=== PATIENT | male | born 1960 | race Caucasian/White ===

== ENCOUNTER 2018-11-23 17:07 | Inpatient (IN) | payer BC ==
[~2018-11-23] VITALS: Ht 177.8 cm; Wt 90.8 kg
[~2018-11-23 17:07] MED LIST: AMIT25; ATORVASTATIN CA10 MG PO; DULOXETINE HCL30 MG PO; DULOXETINE HCL60 MG PO; ERGO50000; Hair, Skin & N1 EACH PO; LOVA40; LOVA40 PO; Multi-Day Vita1 EACH; OMEP20ER; OXYC5 PO
--- NOTE | 2018-11-27 06:40 | NUR ---
History, Chart, Medications and Allergies reviewed before start of procedure. Patient confirms NPO status and agrees with scheduled surgery. Lungs clear T/O to Auscultation. Patient reports completing Chlorhexadine shower X5 prior to admission to hospital IN ADDITION TO 5 DAYS MUPIROCIN OINTMENT TO BILATERAL NARES. NO JEWELRY PRESENT ON ADMIT [facility]. Pre-Op teaching done. Pt verbalizes understanding. PATIENT WILL GIVE HIS GLASSES TO HIS PRIOR TO SURGERY PER HIS REQUEST.
--- NOTE | 2018-11-27 07:18 | NUR ---
OR TRACKER CARD EXPLAINED TO , POLI. OPPORTUNITY FOR QUESTIONS PROVIDED.
--- NOTE | 2018-11-27 07:24 | NUR ---
CUSTOMER ENGAGEMENT ANALYST REPORT COMPLETED AT BEDSIDE WITH DOUG PALACIO RN.
--- NOTE | 2018-11-27 07:24 | NUR ---
PATIENT UP BR FOR UNMEASURED VOID.
--- NOTE | 2018-11-27 18:31 | NUR ---
SHIFT SUMMARY PT EATING AND DRINKING. PT VOIDING. PT BEEN ASSISTED WITH ADL'S PRN. PT BEEN MED FOR PAIN. PT BEEN EDUCATED ON I/S. PT USING CALL LIGHT APPR. PT HAD PROCEDURE TODAY. FAMILY IN/OUT OF ROOM.
--- NOTE | 2018-11-28 04:27 | NUR ---
SHIFT SUMMARY: PT POD #1 FOR R TOTAL HIP. VS WNL T/O SHIFT. AQUACEL DRESSING CDI WITH POLAR PACK IN PLACE. PAIN MANAGED WITH 10MG OXY, AND SCHEDULED TORADOL. PT 1 ASSIST TO BATHROOM W/FWW+GB. VOIDING WELL. FLUIDS TKO. PT EMILIANO PO AND DENIES N/V. ABX COMPLETE. USING HOME CPAP T/O NIGHT. NO CONCERNS AT THIS TIME.
[2018-11-28 04:55] LABS: BASOPHILS ABSOLUTE AUTO 0.02 K/mm3 (0.00-0.23); BASOPHILS PERCENT AUTO 0 % (0-2); EOSINOPHILS ABSOLUTE AUTO 0.03 K/mm3 (0.00-0.68); EOSINOPHILS PERCENT AUTO 0 % (0-6); Hematocrit 35.8 % (37.0-53.0); Hemoglobin 12.6 g/dL (13.5-17.5); IMMATURE GRAN ABSOLUTE AUTO 0.06 K/mm3 (0.00-0.10); IMMATURE GRAN PERCENT AUTO 1 % (0-1); LYMPHOCYTES ABSOLUTE AUTO 1.67 K/mm3 (0.84-5.20); LYMPHOCYTES PERCENT AUTO 13 % (21-46); MONOCYTES ABSOLUTE AUTO 1.18 K/mm3 (0.16-1.47); MONOCYTES PERCENT AUTO 9 % (4-13); Mean Corpuscular HGB Conc 35.2 g/dL (31.5-36.5); Mean Corpuscular Volume 102 fL (80-100); Mean Platelet Volume 10.1 fL (9.1-12.4); NEUTROPHILS PERCENT AUTO 77 % (41-73); Platelet Count 215 K/mm3 (150-400); RDW Coefficient Variation 12.1 % (11.7-14.2); RDW Standard Deviation 45.5 fL (35.1-46.3); White Blood Cell Count 12.76 K/mm3 (4.00-11.30)
[2018-11-28 05:12] LABS: Anion Gap 4 mmol/L (6-16); Blood Urea Nitrogen 12 mg/dL (8-24); Bun/Creatinine Ratio 13.3 (12.0-20.0); CO2, Blood 26 mmol/L (21-32); Calcium, Blood 8.2 mg/dL (8.5-10.1); Chloride, Blood 109 mmol/L (98-108); Glomerular Filtration Rate >60 (60-); Glucose, Blood 120 mg/dL (70-99); Potassium, Blood 3.7 mmol/L (3.5-5.5); Sodium, Blood 139 mmol/L (136-145)
[2018-11-28] MEDS ORDERED: ACET500 PO (09:07)
[2018-11-28] MEDS ORDERED: ASPI81CH PO (09:07)
--- NOTE | 2018-11-28 10:28 | NUR ---
DISCHARGE: PT EATING AND DRINKING WELL. PT VOIDING. PT REPORTS PAIN CONTROLLED ON PO PAIN MEDICATION. PT BEEN CLEARED BY THERAPY TO GO HOME. LYLE PHYSICIAN ASSIST BEEN TO SEE PT THIS AM. PT REPORTS HAVING APPR EQUIP AT HOME. REPORTS UNDERSTANDING OF D/C INSTRUCTIONS. FAMILY REPORTS HAVING PAIN MEDICATION. PT GIVEN ICE MACHINE.
--- NOTE | 2018-11-28 14:18 | NUR ---
11/28/18 1418 Gladis Mullen VERIFICATIONS: EDIT CHART.
== END 2018-11-28 10:30 | disposition home or self-care (01) | DRG 470 ==
LOC: SURS 11-27 05:44 → PRE IP 11-27 07:30 → SURS 11-27 12:06
PROVIDERS: ADMIT Orthopaedic Surgery
PROC: 0SR902A Replacement of Right Hip Joint with Metal on Polyethylene Synthetic Substitute, Uncemented, Open Approach (ICD-10-PCS; principal; 2018-11-27 07:30)
DX: M16.11 Unilateral primary osteoarthritis, right hip (principal); E78.00 Pure hypercholesterolemia, unspecified; Z88.2 Allergy status to sulfonamides; Z91.040 Latex allergy status
CPT/HCPCS: 36415; 72170; 80048; 83735; 85025; 88300; 97110; 97116; 97162; 97530; C1776; J0171; J0690; J0735; J1100; J1170; J1885; J2250; J2405; J2704; J2795; J3010; J7120

== ENCOUNTER 2018-11-29 09:27 | Emergency (ER) | payer BC ==
[~2018-11-29] VITALS: Ht 177.8 cm; Wt 90.7 kg
[~2018-11-29 09:27] MED LIST changes: +ACET500 PO; +ASPI81CH PO
[2018-11-29 10:14] LABS: BASOPHILS ABSOLUTE AUTO 0.05 K/mm3 (0.00-0.23); BASOPHILS PERCENT AUTO 1 % (0-2); EOSINOPHILS ABSOLUTE AUTO 0.12 K/mm3 (0.00-0.68); EOSINOPHILS PERCENT AUTO 1 % (0-6); Hematocrit 39.2 % (37.0-53.0); Hemoglobin 13.5 g/dL (13.5-17.5); IMMATURE GRAN ABSOLUTE AUTO 0.03 K/mm3 (0.00-0.10); IMMATURE GRAN PERCENT AUTO 0 % (0-1); LYMPHOCYTES ABSOLUTE AUTO 2.17 K/mm3 (0.84-5.20); LYMPHOCYTES PERCENT AUTO 22 % (21-46); MONOCYTES ABSOLUTE AUTO 0.93 K/mm3 (0.16-1.47); MONOCYTES PERCENT AUTO 9 % (4-13); Mean Corpuscular HGB 34.8 pg (26.0-34.0); Mean Corpuscular HGB Conc 34.4 g/dL (31.5-36.5); Mean Corpuscular Volume 101 fL (80-100); Mean Platelet Volume 10.8 fL (9.1-12.4); NEUTROPHILS ABSOLUTE AUTO 6.77 K/mm3 (1.96-9.15); NEUTROPHILS PERCENT AUTO 67 % (41-73); Platelet Count 228 K/mm3 (150-400); RDW Coefficient Variation 12.5 % (11.7-14.2); RDW Standard Deviation 46.5 fL (35.1-46.3); Red Blood Cell Count 3.88 M/mm3 (4.30-5.90); White Blood Cell Count 10.07 K/mm3 (4.00-11.30)
[2018-11-29 10:31] LABS: Alanine Aminotransfer (ALT/SGP 53 U/L (12-78); Albumin, Blood 3.3 g/dL (3.4-5.0); Alk Phos 82 U/L (50-136); Anion Gap 6 mmol/L (6-16); Aspartate Aminotrans (AST/SGOT 55 U/L (12-37); Bilirubin, Total 0.5 mg/dL (0.1-1.0); Blood Urea Nitrogen 10 mg/dL (8-24); Bun/Creatinine Ratio 10.9 (12.0-20.0); CO2, Blood 27 mmol/L (21-32); Calcium, Blood 8.5 mg/dL (8.5-10.1); Chloride, Blood 106 mmol/L (98-108); Creatinine, Blood 0.91 mg/dL (0.60-1.20); Globulin, Blood 3.4 g/dL (2.2-4.0); Glomerular Filtration Rate >60 (60-); Glucose, Blood 114 mg/dL (70-99); Potassium, Blood 3.5 mmol/L (3.5-5.5); Sodium, Blood 139 mmol/L (136-145); Total Protein, Blood 6.7 g/dL (6.4-8.2)
== END 2018-11-29 11:36 | disposition home or self-care (01) ==
LOC: ER 09:27
PROVIDERS: Emergency Medicine
DX: R55 Syncope and collapse (principal); Z96.641 Presence of right artificial hip joint; Z88.2 Allergy status to sulfonamides; Z91.040 Latex allergy status; Z88.8 Allergy status to other drugs, medicaments and biological substances; Z79.899 Other long term (current) drug therapy; Z79.82 Long term (current) use of aspirin
CPT/HCPCS: 71046; 80053; 84484; 85025; 93005; 93010; 99284-25

== ENCOUNTER 2020-01-21 11:53 | Day surgery (SDC) | payer BC ==
[~2020-01-21] VITALS: Ht 177.8 cm; Wt 90.2 kg
--- NOTE | 2020-01-21 12:36 | NUR ---
PT ADMITTED TO [facility]. AGREES WITH PLANNED SURGEYR. LUNG SOUNDS CLEAR. PT STATES WAS NEVER IN FORMED OF MSSA POSITIVE REPORT. NO MUPIROCION SCRIPT GIVEN TO PT. PT DID TAKE 2 DAYS OF CHLORHEXIDINE SHOWER.
--- NOTE | 2020-01-21 12:47 | NUR ---
NOCARIEN NO NARES BILATERALLY.
--- NOTE | 2020-01-21 18:53 | NUR ---
SHIFT SUMMARY PT A&OX4, VSS, S/P L SAIDA, AQUACEL CDI. PAIN MANAGED PER EMAR. EMILIANO PO, DENIES N&V. REPOSITIONS SELF WELL IN BED. AWAITING POST-OP VOID. WILL REPORT TO ONCOMING NOC RN.
--- NOTE | 2020-01-22 04:22 | NUR ---
SHIFT SUMMARY: PT POD#1 FOR LEFT SAIDA. AQUACEL DRESSING C/D/I WITH POLAR PACK IN PLACE. PAIN BEING MANAGED WITH 5MG OXY AND SCHEDULED TORADOL AND TYLENOL PER EMAR. PT DID HAVE AN EPISODE OF SEVERE PAIN, REQUIRING O.5MG DILAUDID ONCE. PT OUT OF BED TO BATHROOM WITH SBA+FWW. VOIDING WELL. EMILIANO PO. SALINE LOCKED. PLAN FOR PHYSICAL THERAPY AND POSSIBLE DISCHARGE TODAY. VSS T/O SHIFT.
[2020-01-22 04:52] LABS: BASOPHILS ABSOLUTE AUTO 0.03 K/mm3 (0.00-0.23); BASOPHILS PERCENT AUTO 0 % (0-2); EOSINOPHILS ABSOLUTE AUTO 0.01 K/mm3 (0.00-0.68); EOSINOPHILS PERCENT AUTO 0 % (0-6); Hematocrit 35.1 % (37.0-53.0); Hemoglobin 12.4 g/dL (13.5-17.5); IMMATURE GRAN ABSOLUTE AUTO 0.06 K/mm3 (0.00-0.10); IMMATURE GRAN PERCENT AUTO 1 % (0-1); LYMPHOCYTES ABSOLUTE AUTO 1.24 K/mm3 (0.84-5.20); LYMPHOCYTES PERCENT AUTO 10 % (21-46); MONOCYTES ABSOLUTE AUTO 0.92 K/mm3 (0.16-1.47); MONOCYTES PERCENT AUTO 7 % (4-13); Mean Corpuscular HGB 36.8 pg (26.0-34.0); Mean Corpuscular HGB Conc 35.3 g/dL (31.5-36.5); Mean Corpuscular Volume 104 fL (80-100); Mean Platelet Volume 10.2 fL (9.1-12.4); NEUTROPHILS ABSOLUTE AUTO 10.75 K/mm3 (1.96-9.15); NEUTROPHILS PERCENT AUTO 83 % (41-73); Platelet Count 174 K/mm3 (150-400); RDW Coefficient Variation 12.8 % (11.7-14.2); RDW Standard Deviation 48.8 fL (35.1-46.3); Red Blood Cell Count 3.37 M/mm3 (4.30-5.90); White Blood Cell Count 13.01 K/mm3 (4.00-11.30)
[2020-01-22 05:26] LABS: Anion Gap 5 mmol/L (6-16); Blood Urea Nitrogen 16 mg/dL (8-24); CO2, Blood 25 mmol/L (21-32); Calcium, Blood 8.3 mg/dL (8.5-10.1); Chloride, Blood 109 mmol/L (98-108); Creatinine, Blood 1.14 mg/dL (0.60-1.20); Glomerular Filtration Rate >60 (60-); Glucose, Blood 110 mg/dL (70-99); Magnesium, Blood 2.1 mg/dL (1.6-2.4); Potassium, Blood 4.1 mmol/L (3.5-5.5); Sodium, Blood 139 mmol/L (136-145)
[2020-01-22] MEDS ORDERED: OXAYDO5 M1 PO (09:28)
[2020-01-22] MEDS ORDERED: ASPI81CH PO (09:29)
[2020-01-22] MEDS ORDERED: ACET500 PO (09:29)
[2020-01-22] MEDS ORDERED: MUPIROCIN1 G1 (09:30)
--- NOTE | 2020-01-22 10:11 | NUR ---
DISCHARGE SUMMARY PT A&OX4, VSS, LEFT FLOOR VIA WC WITH LEAD CARPENTER, TO GO HOME WITH , WITH ALL PERSONAL POSSESSIONS INCLUDING 2 AQUACEL DRESSINGS, POLAR MOODY, DISCHARGE INSTRUCTIONS; SCRIPT FOR NARC WAS PROVIDED TO YESTERDAY. DC INSTRUCTIONS PROVIDED. PT REP UNDERSTANDING THOSE INSTRUCTIONS INCLUDING WHEN TO CALL THE DR, WHEN TO CHANGE AQUACEL DRESSING, PHYSICAL THERAPY OUTPT, FU APPT WITH SURGEON, AMBULATION WITH FWW AT ALL TIMES, Q2H WITH EXERCISES Q1H. IV DC'D.
== END 2020-01-22 10:03 | disposition home or self-care (01) ==
LOC: ORD 11:53 → ORSCMMR 11:53 → ORD 14:00 → SURS 16:58 → ORD 01-22 10:03
PROVIDERS: Orthopaedic Surgery
PROC: 0SRB0JA Replacement of Left Hip Joint with Synthetic Substitute, Uncemented, Open Approach (ICD-10-PCS; principal; 2020-01-21 14:00)
DX: M16.12 Unilateral primary osteoarthritis, left hip (principal); I10 Essential (primary) hypertension; E78.5 Hyperlipidemia, unspecified; Z87.891 Personal history of nicotine dependence; Z79.899 Other long term (current) drug therapy
CPT/HCPCS: 36415; 72170; 80048; 83735; 85025; 88300; 97110; 97116; 97162; A9270; C1713; C1776; J0171; J0690; J0735; J1100; J1170; J1885; J2250; J2370; J2405; J2704; J2795; J3010; J7120

== ENCOUNTER 2020-04-16 06:35 | Day surgery (SDC) | payer BC ==
[~2020-04-16] VITALS: Ht 177.8 cm; Wt 90.8 kg
[~2020-04-16 06:35] MED LIST changes: +ATOR10 PO; +MUPIROCIN1 G1; +OXAYDO5 M1 PO
== END 2020-04-16 08:59 | disposition home or self-care (01) ==
LOC: ORSCSDS 06:35
PROVIDERS: Surgery
PROC: 0DJD8ZZ Inspection of Lower Intestinal Tract, Via Natural or Artificial Opening Endoscopic (ICD-10-PCS; principal; 2020-04-16 08:00)
DX: Z12.11 Encounter for screening for malignant neoplasm of colon (principal); K57.30 Diverticulosis of large intestine without perforation or abscess without bleeding; Z86.010 Personal history of colon polyps; E78.5 Hyperlipidemia, unspecified; Z79.899 Other long term (current) drug therapy; F17.210 Nicotine dependence, cigarettes, uncomplicated
CPT/HCPCS: J0330; J0461; J2405; J2704; J7120

== ENCOUNTER 2020-09-03 10:14 | Emergency (ER) | payer BC ==
[~2020-09-03] VITALS: Ht 177.8 cm; Wt 93.0 kg
[2020-09-03 11:10] LABS: Calcium, Ionized (POC) 1.08 mmol/L (1.10-1.46); Chloride (POC) 102 mmol/L (98-108); Glucose (ISTAT POC) 98 mg/dL (70-99); Hemoglobin (POC) 16.3 g/dL (13.5-17.5); Potassium (POC) 4.4 mmol/L (3.5-5.5); Sodium (POC) 137 mmol/L (135-148); Total CO2 (POC) 25 mmol/L (21-32)
== END 2020-09-03 12:14 | disposition home or self-care (01) ==
LOC: ER 10:14
PROVIDERS: Emergency Medicine
DX: I10 Essential (primary) hypertension (principal); K21.9 Gastro-esophageal reflux disease without esophagitis; F17.200 Nicotine dependence, unspecified, uncomplicated; Z88.2 Allergy status to sulfonamides; Z91.040 Latex allergy status; Z88.8 Allergy status to other drugs, medicaments and biological substances
CPT/HCPCS: 36415; 80047; 85014; 93005; 93010; 99284-25

== ENCOUNTER → 2022-10-08 | Outpatient (CLI) | payer BC | END | disposition home or self-care (01) | LOC: LAB SHORT 11:09 → LAB 11:09 | PROVIDERS: Family Medicine | DX: G89.4 Chronic pain syndrome (principal) | CPT/HCPCS: G0480 ==

== ENCOUNTER → 2024-07-03 | Outpatient (CLI) | payer BC ==
[2024-07-06 17:28] LABS: 6-ACETYLMORPHINE, URN, QUANT <10 ng/mL; CODEINE, URN, QUANT <20 ng/mL; HYDROCODONE, URN, QUANT 697 ng/mL; HYDROMORPHONE, URN, QUANT <20 ng/mL; MORPHINE, URN, QUANT <20 ng/mL; NORHYDROCODONE, URN, QUANT 441 ng/mL; NOROXYCODONE, URN, QUANT 44 ng/mL; NOROXYMORPHONE, URN, QUANT <20 ng/mL; OXYCODONE, URN, QUANT <20 ng/mL; OXYMORPHONE, URN, QUANT <20 ng/mL
== END | disposition home or self-care (01) ==
LOC: LAB SHORT 16:36 → LAB 16:36
PROVIDERS: Family Medicine
DX: G89.4 Chronic pain syndrome (principal)
CPT/HCPCS: G0480